=== PATIENT | male | born 1965 | race Caucasian/White ===

== ENCOUNTER → 2021-06-11 | Day surgery (SDC) | payer OTHER ==
[~2021-06-11] VITALS: Ht 180.3 cm; Wt 72.6 kg
[~2021-06-11] MED LIST: LISINOPRIL10 MG PO
[2021-06-11 09:49] LABS: HCT 40.8 % (42.0-52.0); HGB 14.6 g/dl (13.2-18.0); MCH 31.9 pg (25.0-31.0); MCHC 35.8 g/dL (32.0-36.0); MCV 89.3 fL (78.0-100.0); RBC 4.57 M/uL (4.70-6.00); RDW 13.3 % (11.5-14.0); WBC 6.9 K/uL (4.0-10.5)
[2021-06-11 10:04] LABS: ALBUMIN 3.7 g/dL (3.4-5.0); BILIRUBIN - TOTAL 0.3 mg/dL (0.2-1.0); BUN/CREAT RATIO (CALC) 10.4 RATIO; CREATININE 0.67 mg/dL (0.67-1.17); GLOBULIN (CALCULATION) 3.9 g/dL; POTASSIUM 4.4 mmol/L (3.5-5.1); TOTAL PROTEIN 7.6 g/dL (6.4-8.2)
--- NOTE | 2021-06-11 11:17 | NUR ---
CASE CANCELLED PER ANESTHESIA. PT TO F/U WITH DR CHINO. APPT MADE 07/07 @ 3:00- PT AWARE.
== END | disposition home or self-care (01) ==
LOC: FAS 08:55
PROVIDERS: Surgery
DX: R22.32 Localized swelling, mass and lump, left upper limb (principal); L72.3 Sebaceous cyst; I10 Essential (primary) hypertension; F17.210 Nicotine dependence, cigarettes, uncomplicated; Z79.899 Other long term (current) drug therapy; Z53.8 Procedure and treatment not carried out for other reasons
CPT/HCPCS: 36415; 80053; 84484; 93005; J0690

== ENCOUNTER → 2021-09-14 | Day surgery (SDC) | payer OTHER ==
[~2021-09-14] VITALS: Ht 180.3 cm; Wt 72.6 kg
[~2021-09-14] MED LIST changes: +NORCO 5-325 TA1 EACH PO
[2021-09-14 08:09] LABS: HCT 41.5 % (42.0-52.0); HGB 14.8 g/dl (13.2-18.0); MCH 30.8 pg (25.0-31.0); MCHC 35.7 g/dL (32.0-36.0); MCV 86.5 fL (78.0-100.0); MPV 9.3 fL (6.0-9.5); RBC 4.8 M/uL (4.70-6.00); RDW 12.5 % (11.5-14.0); WBC 7.7 K/uL (4.0-10.5)
[2021-09-14 08:48] LABS: ALBUMIN 3.5 g/dL (3.4-5.0); BILIRUBIN - TOTAL 0.5 mg/dL (0.2-1.0); BUN/CREAT RATIO (CALC) 12.4 RATIO; CREATININE 0.89 mg/dL (0.67-1.17); POTASSIUM 4.1 mmol/L (3.5-5.1); TOTAL PROTEIN 7.5 g/dL (6.4-8.2)
== END | disposition home or self-care (01) ==
LOC: FAS 07:42
PROVIDERS: Surgery
DX: R22.32 Localized swelling, mass and lump, left upper limb (principal); L72.3 Sebaceous cyst; I10 Essential (primary) hypertension; F17.200 Nicotine dependence, unspecified, uncomplicated; Z79.899 Other long term (current) drug therapy
CPT/HCPCS: 36415; 80053; J0690; J2250; J2405; J2704; J3010; J7120

== ENCOUNTER → 2022-04-05 | Day surgery (SDC) | payer OTHER ==
[~2022-04-05] VITALS: Ht 177.8 cm; Wt 68.0 kg
[2022-04-05 13:04] LABS: HCT 39.3 % (42.0-52.0); HGB 13.6 g/dl (13.2-18.0); MCH 31.1 pg (25.0-31.0); MCHC 34.6 g/dL (32.0-36.0); MCV 89.7 fL (78.0-100.0); MPV 9.4 fL (6.0-9.5); RBC 4.38 M/uL (4.70-6.00); RDW 13.3 % (11.5-14.0); WBC 7.6 K/uL (4.0-10.5)
[2022-04-05 13:20] LABS: ALBUMIN 3.3 g/dL (3.4-5.0); BILIRUBIN - TOTAL 0.4 mg/dL (0.2-1.0); BUN/CREAT RATIO (CALC) 11.4 RATIO; CREATININE 0.7 mg/dL (0.67-1.17); POTASSIUM 3.8 mmol/L (3.5-5.1); TOTAL PROTEIN 7.3 g/dL (6.4-8.2)
== END | disposition home or self-care (01) ==
LOC: FAS 03-22 13:15
PROVIDERS: Orthopaedic Surgery
DX: G56.03 Carpal tunnel syndrome, bilateral upper limbs (principal); I10 Essential (primary) hypertension; F17.200 Nicotine dependence, unspecified, uncomplicated
CPT/HCPCS: 36415; 80053; J1100; J2250; J2405; J2704; J3010; J7120